=== PATIENT | female | born 1965 | race Caucasian/White ===

== ENCOUNTER → 2017-07-08 | Outpatient (CLI) | payer BC ==
[2017-07-08 08:45] LABS: ALANINE AMINOTRANSFERASE 22 U/L (9-52); ALBUMIN 3.5 g/dL (3.5-5.0); ALKALINE PHOSPHATASE 71 U/L (38-126); ANION GAP 9 (5-19); ASPARTATE AMINO TRANSFERASE 12 U/L (14-36); BILIRUBIN,DIRECT 0.2 mg/dL (0.0-0.4); BILIRUBIN,TOTAL 0.3 mg/dL (0.2-1.3); BLOOD UREA NITROGEN 9 mg/dL (7-20); CARBON DIOXIDE 27 mmol/L (22-30); CHLORIDE 107 mmol/L (98-107); GLUCOSE 126 mg/dL (75-110); POTASSIUM 4.4 mmol/L (3.6-5.0); SODIUM 142.8 mmol/L (137-145); TOTAL PROTEIN 5.7 g/dL (6.3-8.2)
== END ==
LOC: LAB 08:09
PROVIDERS: ATTEND Nurse Practitioner
DX: E11.65 Type 2 diabetes mellitus with hyperglycemia (principal)
CPT/HCPCS: 36415; 80053; 84443